=== PATIENT | female | born 1975 | race African-American/Black ===

== ENCOUNTER 2016-06-09 05:45 | Inpatient (IN) | payer MEDICAID ==
[~2016-06-09] VITALS: Ht 177.8 cm; Wt 83.0 kg
[2016-06-09] VITALS (31 sets, daily range): BP systolic 105–125; BP diastolic 59–78; PULSE 80–106; RESP 18; TEMP 97.7–97.9
[~2016-06-09 05:45] MED LIST: CETI10 PO
[2016-06-09] MEDS ORDERED: ZYRT10CA PO (06:24)
[2016-06-09] MEDS ORDERED: FLUT50SP EACH NARE (06:24)
[2016-06-09] MEDS ORDERED: CALNTAB (06:24)
[2016-06-09] MEDS ORDERED: LACTATED RINGER'S 1000 ML BOLUS IV PRN (07:30)
[2016-06-09] MEDS ORDERED: NS 1000 ML IV PRN (07:30)
[2016-06-09] MEDS ORDERED: MINERAL OIL 10 ML VIAL TOP PRN (07:30)
[2016-06-09] MEDS ORDERED: ONDANSETRON HCL 4 MG/2 ML VIAL IV PRN (07:30)
[2016-06-09] MEDS ORDERED: NS 500 ML BOLUS IV PRN (07:30)
[2016-06-09] MEDS ORDERED: LIDOCAINE HCL 1% 50 ML VIAL I-DERMAL PRN ×2 (07:30→07:45)
[2016-06-09] MEDS ORDERED: LIDOCAINE HCL 1% 50 ML VIAL INFIL PRN ×2 (07:30→07:45)
[2016-06-09] MEDS ORDERED: CITRIC ACID-SODIUM CITRATE LIQ 30 ML UDC PO SCH ×2 (07:30→07:45)
[2016-06-09] MEDS ORDERED: LACTATED RINGER'S 1000 ML INJ 1,000 ML IV PRN (07:32)
--- NOTE | 2016-06-09 07:44 | HHI.HP ---
HPI Chief Complaint 39 week IUP ; for TOLAC marginal bishops score resides at [facility] opioid addiction in remission Date Seen: Jun 09, 2016 Time Seen: 07:37 Travel History International Travel<30 Days: No Contact w/Intl Traveler<30Days: No Known Affected Area: No History of Present Illness HPI 40 yo sbf at 39 weeks EGA admitted for low dose pitocin and TOLAC Prior section 17 years ago with known LTSC scar. No HTN, GDM or PTL Currently has no UCs, leaking, bleeding. GFM. Cervix marginally favorable. Resides at [facility] and logistics at times difficult. Transferred mid from long term and in [facility] Diversion program. She is Hep C+ GBS+ no other serology positive. 45 pound weight gain. Para: 1 : 3 Allergies-Medications (Allergen,Severity, Reaction): Coded Allergies: No Known Allergies (Verified , 10/03/14) Home Meds Reported Medications Cetirizine (Zyrtec Allergy)10 Mg Cap10 Mg PO DAILY Ref 0 06/09/16 Fluticasone Nasal [place] 50 Mcg/Act Naspr50 Mcg EACH NARE BID #1 BOTTLE Ref 0 50 mcg/spray 06/09/16 Vitamin (Calna)1 Tab Tab 06/09/16 Discontinued Scripts Cetirizine 10 Mg Tab10 Mg PO Q12HR #30 TAB Prov:Deepa Burrell MD 01/26/16 Physical Exam Narrative GENERAL: Well-nourished, well-developed patient. SKIN: Warm and dry. HEAD: Normocephalic and atraumatic. EYES: No scleral icterus. No injection or drainage. ENT: No nasal drainage noted. Mucous membranes pink. Airway patent. NECK: Supple, trachea midline. No JVD. CARDIOVASCULAR: Regular rate and rhythm without murmurs, gallops, or rubs. RESPIRATORY: Breath sounds equal bilaterally. No accessory muscle use. BREASTS: Bilateral exam showed no masses , no retractions, no nipple discharge. ABDOMEN/GI: Abdomen soft, non-tender, bowel sounds present, no rebound, no guarding term fundus cephalic EFW 7 pelvis clinically adequate strip category 1 cervix soft/50/anterior/finger tip EXTREMITIES: No cyanosis or edema. BACK: Nontender without obvious deformity. No CVA tenderness. NEUROLOGICAL: Awake and alert. Motor and sensory grossly within normal limits. Five out of 5 muscle strength in all muscle groups. Normal speech. Data Data Orders Lactated Ringer's 1000 Ml Inj (Lr 1000 M (06/09/16 08:00) Lactated Ringer's 1000 Ml Inj (Lr 1000 M (06/09/16 07:30) Sodium Chlorid 0.9% 500 Ml Inj (Ns 500 M (06/09/16 07:30) Sodium Chlor 0.9% 1000 Ml Inj (Ns 1000 M (06/09/16 07:30) Lidocaine 1% Inj (50 Ml) (Xylocaine 1% I (06/09/16 07:30) Citric Acid-Sodium Citrate Liq (Bicitra (06/09/16 07:30) Ondansetron Inj (Zofran Inj) (06/09/16 07:30) Fentanyl Inj (Fentanyl Inj) (06/09/16 07:30) Fentanyl Inj (Fentanyl Inj) (06/09/16 07:30) Penicillin G Potassium Inj (Pfizerpen-G (06/09/16 08:00) Penicillin G Potassium Inj (Pfizerpen-G (06/09/16 12:00) Oxytocin 30 Units-500ml Premix (Pitocin (06/09/16 08:00) Lidocaine 1% Inj (50 Ml) (Xylocaine 1% I (06/09/16 07:30) Light Mineral Oil (Muri-Lube Oil) (06/09/16 07:30) Admit To Inpatient (06/09/16 ) Code Status (06/09/16 07:32) Vital Signs (Adult) .Per protocol (06/09/16 07:32) Activity Oob Ad Eliana (06/09/16 07:32) ^ Amnioinfusion (06/09/16 07:32) Urinary Catheter Management .ONCE (06/09/16 07:32) Lactated Ringer's 1000 Ml Inj (Lr 1000 M (06/09/16 07:32) Lactated Ringer's 1000 Ml Inj (Lr 1000 M (06/09/16 07:32) Sodium Chlorid 0.9% 500 Ml Inj (Ns 500 M (06/09/16 07:45) Sodium Chlor 0.9% 1000 Ml Inj (Ns 1000 M (06/09/16 07:52) Lidocaine 1% Inj (50 Ml) (Xylocaine 1% I (06/09/16 07:45) Citric Acid-Sodium Citrate Liq (Bicitra (06/09/16 07:45) Fentanyl Inj (Fentanyl Inj) (06/09/16 07:45) Fentanyl Inj (Fentanyl Inj) (06/09/16 07:45) Penicillin G Potassium Inj (Pfizerpen-G (06/09/16 07:45) Penicillin G Potassium Inj (Pfizerpen-G (06/09/16 11:45) Complete Blood Count With Diff (06/09/16 07:32) Hold Clot (06/09/16 07:32) Abo/Rh Blood Type (06/09/16 07:32) Urinalysis - C+S If Indicated (06/09/16 07:32) Resp Oxygen Non Rebreathe Mask (06/09/16 ) ^ Epidural / Intrathecal Infus (06/09/16 07:32) Oxytocin 30 Units-500ml Premix (Pitocin (06/09/16 07:45) Lidocaine 1% Inj (50 Ml) (Xylocaine 1% I (06/09/16 07:45) Light Mineral Oil (Muri-Lube Oil) (06/09/16 07:45) ^ Non Stress Test (06/09/16 07:32) Response To Medication .Post New Med Administration, Reaction (06/09/16 07:32) ^ Discontinue Medication (06/09/16 07:32) Oxytocin Drip (1-1-30) (06/09/16 07:45) Inpatient Certification (06/09/16 ) Specimen To Be Collected PRN (06/09/16 07:32) Diet Regular Basic (06/09/16 Breakfast) Hepatitis C Rna Genotype (06/09/16 07:32) Hepatitis C Rna Quantitative (06/09/16 07:32) Assessment/Plan Problem List: (1) Abdominal cramping affecting , antepartum (2) 20 weeks gestation of Assessment and Plan candidate for TOLAC here for low dose pitocin epidural as desires anticipate Deepa Giles MD Jun 09, 2016 07:44
[2016-06-09] MEDS ORDERED: SODIUM CHLORID 0.9% 500 ML INJ 500 ML IV PRN (07:45)
[2016-06-09] MEDS ORDERED: MINERAL OIL 10 ML VIAL TOPICAL PRN (07:45)
[2016-06-09 07:51] LABS: AUTOMATED NEUTROPHIL # 8.6 TH/MM3 (1.8-7.7); BASOPHIL % 0.2 % (0.0-2.0); EOSINOPHIL # 0.3 TH/MM3 (0-0.4); EOSINOPHIL % 1.9 % (0.0-4.0); HEMATOCRIT 30.6 % (35.0-46.0); HEMO FLAGS DIFF FINAL; LYMPH % 29.1 % (9.0-44.0); LYMPHOCYTE # 4.1 TH/MM3 (1.0-4.8); MEAN CELL VOLUME 85.1 FL (80.0-100.0); MEAN CORPUSCULAR HEMOGLOBIN 28.5 PG (27.0-34.0); MEAN CORPUSCULAR HGB CONC 33.5 % (32.0-36.0); MONO % 7.8 % (0.0-8.0); PLATELET COUNT 317 TH/MM3 (150-450); RED CELL DISTRIBUTION WIDTH 14.9 % (11.6-17.2); WHITE BLOOD COUNT 14.2 TH/MM3 (4.0-11.0)
[2016-06-09] MEDS ORDERED: SODIUM CHLOR 0.9% 1000 ML INJ 1,000 ML IV PRN (07:52)
[2016-06-09] MEDS ORDERED: PENICILLIN G POTASSIUM INJ 5,000,000 UNITS in SODIUM CHLORIDE 0.9% INJ 100 ML IV ONE (08:00)
[2016-06-09] MEDS ORDERED: LACTATED RINGER'S 1000 ML IV SCH (08:00)
[2016-06-09] MEDS ORDERED: OXYTOCIN 30 UNITS-500ML PREMIX 500 ML IV ONE (08:00)
[2016-06-09] MEDS ORDERED: OXYTOCIN 30 UNITS 500ML PREMIX IV ONE (08:00)
[2016-06-09] MEDS ORDERED: PENICILLIN G POT 5,000,000 UNITS/NS 100 ML (Mini-Bag Plus) IV ONE ×2 (08:00)
[2016-06-09 08:01] LABS: BLOOD, URINE NEG (NEG); GLUCOSE,URINE NEG (NEG); KETONE, URINE NEG (NEG); MUCUS URINE FEW /lpf (OCC); NITRITE,URINE NEG (NEG); SQUAMOUS EPITHELIAL CELL URINE 1 /hpf (0-5); URINE COLOR YELLOW (YELLW/STRAW)
[2016-06-09 08:02] LABS: COMMENT (UR) CULT NOT INDICATED; CULTURE IF INDICATED CULT NOT INDICATED
[2016-06-09] MEDS: LACTATED RINGER'S 1000 ML INJ 1,000 ML IV SCH ×2 (08:32→21:50)
[2016-06-09] MEDS: OXYTOCIN 30 UNITS-500ML PREMIX 500 ML IV SCH (08:56)
[2016-06-09] MEDS: PENICILLIN G POTASSIUM INJ 2,500,000 UNITS in SODIUM CHLORIDE 0.9% INJ 100 ML IV SCH ×3 (12:00→20:00)
[2016-06-09] MEDS ORDERED: PENICILLIN G POT 2,500,000 UNITS/NS 100 ML IV SCH ×2 (12:00)
--- NOTE | 2016-06-09 13:06 | PD.LABORPN ---
Subjective Subjective having some mild ucs Objective Vital Signs Vital Signs Date Time Temp Pulse Resp B/P Pulse Ox O2 Delivery O2 Flow Rate FiO2 06/09/16 12:33 18 06/09/16 12:32 92 113/68 06/09/16 11:53 96 116/65 06/09/16 11:22 97.8 99 18 108/68 06/09/16 10:44 97 114/65 06/09/16 10:15 18 06/09/16 10:15 101 118/67 06/09/16 09:41 18 06/09/16 09:35 106 119/59 06/09/16 08:53 92 18 105/68 06/09/16 08:04 89 114/70 06/09/16 08:03 18 Objective 1 cm 50% stripped strip category one Assessment/Plan Problem List: (1) Abdominal cramping affecting , antepartum (2) 20 weeks gestation of Assessment and Plan will increase pitocin section was 17 years ago. may be serial induction Deepa Burrell MD Jun 09, 2016 13:06
[2016-06-09] MEDS: diphenhydrAMINE HCL 50 MG CAP PO PRN (15:57)
[2016-06-09] MEDS: ZOLPIDEM TARTRATE 5 MG TAB PO PRN (23:05)
[2016-06-10] VITALS (60 sets, daily range): BP systolic 92–125; BP diastolic 48–88; PULSE 87–107; RESP 16–18; TEMP 97.6–98.4
[2016-06-10] MEDS: PENICILLIN G POTASSIUM INJ 2,500,000 UNITS in SODIUM CHLORIDE 0.9% INJ 100 ML IV SCH ×4 (04:00→17:15)
--- NOTE | 2016-06-10 06:23 | PD.LABORPN ---
Subjective Subjective Resting comfortably with mild UCs on 13 mu/min pit no epidural yet Objective Vital Signs Vital Signs Date Time Temp Pulse Resp B/P Pulse Ox O2 Delivery O2 Flow Rate FiO2 06/10/16 05:34 98.0 18 06/10/16 05:34 90 112/67 06/10/16 04:11 90 101/58 06/10/16 03:30 95 93/50 06/10/16 03:00 90 92/50 06/10/16 02:30 91 101/48 06/10/16 02:02 89 102/49 06/10/16 02:00 90 06/10/16 01:30 87 103/57 06/10/16 01:15 18 06/10/16 01:00 91 109/55 06/10/16 00:31 89 111/55 06/10/16 00:00 87 104/55 06/09/16 23:45 80 121/69 06/09/16 23:07 97.7 18 06/09/16 23:01 86 117/70 06/09/16 22:45 18 06/09/16 22:41 91 125/78 Objective anterior/soft/long/1 cm EFW 7 pelvis clinically adequate strip category 1 Assessment/Plan Problem List: (1) Abdominal cramping affecting , antepartum (2) 20 weeks gestation of Assessment and Plan slow progress reassuring and maternal status cannot use prostaglandins turn pitocin off shower, breakfast resume pitocin at 1 mu/min Deepa Burrell MD Jun 10, 2016 06:23
[2016-06-10] MEDS: diphenhydrAMINE HCL 50 MG CAP PO PRN (07:23)
[2016-06-10] MEDS: OXYTOCIN 30 UNITS-500ML PREMIX 500 ML IV SCH (10:06)
--- NOTE | 2016-06-10 11:20 | PD.LABORPN ---
Subjective Subjective No change yet strip reassuring large winters with Q tip stylette placed through cervix and filled with 45 cc saline and taped to leg keep pitocin at 2 mu/min will see if assists in effacement Objective Vital Signs Vital Signs Date Time Temp Pulse Resp B/P Pulse Ox O2 Delivery O2 Flow Rate FiO2 06/10/16 10:35 16 06/10/16 10:00 107 16 106/68 06/10/16 09:45 16 06/10/16 08:45 16 06/10/16 08:15 18 06/10/16 07:45 16 06/10/16 07:08 105 92/55 06/10/16 07:07 97.9 16 06/10/16 05:34 98.0 18 06/10/16 05:34 90 112/67 06/10/16 04:11 90 101/58 06/10/16 03:30 95 93/50 Objective Pelvic Exam: Cervix: [-] Dilatation: [-] Effacement: [-] Station: [-] Presentation: [-] Membranes: [intact or ruptured] Uterine Contractions: [-] FHT's: Category: [-] Baseline: [-] Reactive: [-] Variability: [-] Decels: [-] Assessment/Plan Problem List: (1) Abdominal cramping affecting , antepartum (2) 20 weeks gestation of Deepa Burrell MD Jun 10, 2016 11:20
[2016-06-10] MEDS: LACTATED RINGER'S 1000 ML INJ 1,000 ML IV SCH (13:29)
[2016-06-10] MEDS: ZOLPIDEM TARTRATE 5 MG TAB PO PRN (22:38)
[2016-06-11] VITALS (31 sets, daily range): BP systolic 88–128; BP diastolic 48–86; PULSE 75–101; RESP 16–18; TEMP 97.8–98.2; O2SAT 97–100
[2016-06-11] MEDS: PENICILLIN G POTASSIUM INJ 2,500,000 UNITS in SODIUM CHLORIDE 0.9% INJ 100 ML IV SCH ×5 (00:32→16:08)
[2016-06-11] MEDS: LACTATED RINGER'S 1000 ML INJ 1,000 ML IV SCH ×2 (04:42→08:19)
--- NOTE | 2016-06-11 07:41 | PD.LABORPN ---
Subjective Subjective Beginning to perceive contractions no pain medicine required yet winters fell out of cervix at 1 am beginning to perceive contractions strip reactive winters fell out of cervix at 1 am GFM no leaking or bleeding Objective Vital Signs Vital Signs Date Time Temp Pulse Resp B/P Pulse Ox O2 Delivery O2 Flow Rate FiO2 06/11/16 05:50 85 107/58 06/11/16 05:49 16 06/11/16 05:14 16 06/11/16 05:13 93 104/66 06/11/16 04:40 92 06/11/16 04:40 95 103/65 06/11/16 04:15 98.1 16 06/11/16 04:00 94 104/62 06/11/16 03:30 95 104/54 06/11/16 03:00 90 100/51 06/11/16 02:30 95 97/49 06/11/16 02:00 91 94/53 06/11/16 01:55 98.0 16 06/11/16 01:30 95 98/48 06/11/16 01:01 16 06/11/16 01:00 93 103/55 06/11/16 00:30 91 98/56 06/11/16 00:05 94 88/66 06/10/16 23:56 97.6 16 06/10/16 23:56 95 96/48 Objective 2+/50/-2 soft and anterior arom clear pelvis clinically adequate efw 7 pounds strip category 1 Assessment/Plan Problem List: (1) Abdominal cramping affecting , antepartum (2) 20 weeks gestation of Assessment and Plan resume pen G for GBS prophylaxis increase pitocin epidural as needed continuous monitoring anticipate all reviewed with Deepa Buckley MD Jun 11, 2016 07:41
[2016-06-11 09:51] LABS: HCV RNA PCR IU/ML 596000 IU/mL (()); HCV RNA PCR LOGIU/ML 5.78 (())
--- NOTE | 2016-06-11 16:57 | PD.LABORPN ---
Subjective Subjective after AROM this am, Thais has remained comfortble with mild contractions. On 10 mu/min pitocin/ PCN for GBS . Checks at noon and 4:30 show now dilation, thinning or descent beyond what was created by the winters bulb. Strip category one Objective Vital Signs Vital Signs Date Time Temp Pulse Resp B/P Pulse Ox O2 Delivery O2 Flow Rate FiO2 06/11/16 13:03 91 128/76 06/11/16 12:35 97.9 06/11/16 12:34 93 18 116/70 06/11/16 09:53 98.2 06/11/16 09:31 93 109/55 06/11/16 09:30 98.2 18 Assessment/Plan Problem List: (1) Abdominal cramping affecting , antepartum (2) 20 weeks gestation of Assessment and Plan Healthy fetus and mother with a 2 1/2 day TOLAC that has not produced enough cervical change to warrant continued effort. Discussed with Thais and FOB and we will proceed with repeat section. Risks, benefits, expectations reviewed. Deepa Burrell MD Jun 11, 2016 16:57
[2016-06-11] MEDS ORDERED: OXYTOCIN 10 UNIT/ML AMP ONE (17:15)
--- NOTE | 2016-06-11 18:16 | PD.OB.DELI ---
Procedure Note Section Procedure Pre Op Diagnosis term, TOLAC,. failure of dilation and descent Post Op Diagnosis: Post Op Diagnosis same, delivered Performed by Deepa Burrell Procedure: Repeat Low Transverse Sec Indication for delivery: Other (lack of dilation and descent) Informed consent obtained: For anesthesia, For procedure Confirmed correct: Patient, Procedure, Site, Time-out taken Anesthesia: Spinal, Other (with post procedure TAP) Medication prior to procedure: As documented in eMAR Monitoring during procedure: Blood pressure monitoring Urinary catheter: Inserted using sterile technique, To dependent drainage Sterile preparation: Duraprep, In usual fashion, With 2% chlorexidine ( Hibiclens) Position: Supine with wedge to right side Operative Features Skin Incision: Pfannenstiel Uterine Incision: Low transverse w/knife / blunt ext Membranes Ruptured: Artificially Presentation: Occiput anterior Delivery of infant: Assisted : Male One Minute : 9 Five Minute : 9 Weight: 7 5 Status of infant: Viable, Cord blood Placenta delivered: Intact Medications: Oxytocin Estimated blood loss: 500 Procedure tolerated: Well Maternal Condition: Stable Condition: Stable (45 second delay for cord clamping) Deepa Burrell MD Jun 11, 2016 18:16
[2016-06-11] MEDS ORDERED: KETOROLAC TROMETHAMINE 60 MG/2 ML (IM) VIAL IM PRN (18:30)
[2016-06-11] MEDS ORDERED: SODIUM CHLORIDE 0.9% FLUSH 10 ML FLUSH IV FLUSH PRN (18:30)
[2016-06-11] MEDS ORDERED: SIMETHICONE 80 MG CHEWABLE TAB PO PRN (18:30)
[2016-06-11] MEDS ORDERED: ACETAMINOPHEN 1000 MG/100 ML VIAL IV ONE ×2 (18:30→18:54)
[2016-06-11] MEDS ORDERED: OXYTOCIN 30 UNITS-500ML PREMIX 500 ML IV ONE (18:30)
[2016-06-11] MEDS ORDERED: ONDANSETRON HCL 4 MG/2 ML VIAL IV PUSH PRN (18:30)
[2016-06-11] MEDS ORDERED: oxyCODONE/ACETAMINOPHEN 5 MG/325 MG TAB PO PRN ×2 (18:30)
[2016-06-11] MEDS ORDERED: MORPHINE SULFATE PF 5 MG/10 ML VIAL ONE (18:31)
[2016-06-11] MEDS ORDERED: DEXAMETHASONE SOD PHOS 4 MG/ML VIAL IV ONE (18:49)
[2016-06-11] MEDS ORDERED: LACTATED RINGER'S 1000 ML INJ 1,000 ML IV ONE (18:49)
[2016-06-11] MEDS ORDERED: OXYTOCIN 30 UNITS-500ML PREMIX 500 ML ONE (18:54)
[2016-06-11 19:53] LABS: HEPATITIS C RNA GENOTYPE 1a (())
[2016-06-11] MEDS ORDERED: EPIDURAL-DIPHENHYDRAMINE HCL 50 MG CAP PO PRN (20:00)
[2016-06-11] MEDS ORDERED: EPIDURAL-DIPHENHYDRAMINE HCL 50 MG/ML VIAL IV PUSH PRN (20:00)
[2016-06-11] MEDS ORDERED: EPIDURAL-NALOXONE HCL 0.4 MG/ML AMP IV PRN (20:00)
[2016-06-11] MEDS ORDERED: EPIDURAL-DO NOT ADMINISTER ANTICOAGULANTS XX PRN (20:00)
[2016-06-11] MEDS ORDERED: EPIDURAL-NO SYSTEMIC NARCOTICS XX PRN (20:00)
[2016-06-11] MEDS ORDERED: ZOLPIDEM TARTRATE 5 MG TAB PO PRN (21:00)
[2016-06-11] MEDS ORDERED: SODIUM CHLORIDE 0.9% FLUSH 10 ML FLUSH IV FLUSH SCH (21:00)
[2016-06-11] MEDS: diphenhydrAMINE HCL 50 MG CAP PO PRN (23:04)
[2016-06-11] MEDS ORDERED: LACTATED RINGER'S 1000 ML INJ 1,000 ML IV SCH (23:16)
[2016-06-12 01:30] VITALS: BP 114/67; PULSE 77; RESP 18; TEMP 98.2
[2016-06-12] MEDS ORDERED: OXYTOCIN 30 UNITS-500ML PREMIX 500 ML IV PRN (04:30)
[2016-06-12 06:12] LABS: AUTOMATED NEUTROPHIL # 16.5 TH/MM3 (1.8-7.7); BASOPHIL # 0.1 TH/MM3 (0-0.2); BASOPHIL % 0.3 % (0.0-2.0); HEMATOCRIT 27.6 % (35.0-46.0); HEMO FLAGS DIFF FINAL; LYMPH % 16.8 % (9.0-44.0); LYMPHOCYTE # 3.7 TH/MM3 (1.0-4.8); MEAN CELL VOLUME 84.8 FL (80.0-100.0); MEAN CORPUSCULAR HEMOGLOBIN 28.3 PG (27.0-34.0); MEAN CORPUSCULAR HGB CONC 33.4 % (32.0-36.0); MONO % 7.6 % (0.0-8.0); NEUT % 75.3 % (16.0-70.0); PLATELET COUNT 283 TH/MM3 (150-450); RED BLOOD COUNT 3.25 MIL/MM3 (4.00-5.30); RED CELL DISTRIBUTION WIDTH 15.7 % (11.6-17.2); WHITE BLOOD COUNT 21.9 TH/MM3 (4.0-11.0)
[2016-06-12 07:45] VITALS: BP 99/59; PULSE 76; RESP 18; TEMP 98.1
[2016-06-12] MEDS: diphenhydrAMINE HCL 50 MG CAP PO PRN (08:04)
[2016-06-12] MEDS: DOCUSATE SODIUM 50 MG/SENNA 8.6 MG TAB PO PRN (15:05)
[2016-06-12] MEDS ORDERED: DIPHTH/TETANUS/ACEL PERTUSSIS (BOOSTER) 0.5 ML VIAL/PFS IM ONE (16:00)
[2016-06-12] MEDS ORDERED: MEASLES, MUMPS, RUBELLA VACCINE 0.5 ML VIAL SQ ONE (16:00)
[2016-06-12 19:35] VITALS: BP 130/70; PULSE 94; RESP 18; TEMP 98.1
[2016-06-12] MEDS ORDERED: INFLUENZA VIRUS VACCINE (QUADRIVALENT) 0.5 ML SYR IM ONE (22:00)
[2016-06-12] MEDS ORDERED: ACETAMINOPHEN 325 MG TAB PO PRN (22:30)
[2016-06-12] MEDS ORDERED: IBUPROFEN 600 MG TAB PO PRN (22:30)
[2016-06-12] MEDS: KETOROLAC TROMETHAMINE 30 MG/ML (IVP) VIAL IV PUSH PRN (22:34)
--- NOTE | 2016-06-13 09:05 | HHI.OB ---
Subjective Post Operative Day: 2 Remarks Doing well no pain issues nursing well Objective Vitals/I&O Vital Signs Date Time Temp Pulse Resp B/P Pulse Ox O2 Delivery O2 Flow Rate FiO2 06/12/16 19:35 98.1 94 18 06/12/16 19:35 130/70 Result Diagram: 06/12/16 0504 Objective Remarks GENERAL: Well-nourished, well-developed patient. CARDIOVASCULAR: Regular rate and rhythm without murmurs, gallops, or rubs. RESPIRATORY: Breath sounds equal bilaterally. No accessory muscle use. ABDOMEN/GI: Abdomen soft, non-tender, bowel sounds present. Incision: Clean, dry and intact. Fundus: Firm, non-tender at umbilicus. GENITOURINARY: Light to moderate bleeding. EXTREMITIES: No cyanosis or edema, non-tender, without signs of DVT. Medications and IVs Current Medications Medications (Trade) Dose Ordered Sig/Catina Route Start Time Stop Time Status Last Admin Fentanyl Citrate 50 mcg 50 mcg Q1H PRN IV PUSH 06/09/16 07:45 (Pfizerpen-G Inj/ NS Inj) 100 ml @ 200 mls/hr Q4H IV 06/09/16 12:00 06/11/16 16:08 Mineral Oil 10 ml 10 ml UNSCH PRN TOPICAL 06/09/16 07:45 (Pitocin 30 Units-NS 500 ml Premix) 500 ml @ 0 mls/hr TITRATE IV 06/09/16 07:45 06/10/16 10:06 (Benadryl) 50 mg Q4H PRN PO 06/09/16 16:00 06/12/16 08:04 (NS Flush) 2 ml BID IV FLUSH 06/11/16 21:00 (NS Flush) 2 ml UNSCH PRN IV FLUSH 06/11/16 18:30 (Mylicon Chew) 80 mg QID PRN PO 06/11/16 18:30 (Mary-Colace) 2 tab Q12H PRN PO 06/11/16 18:30 06/12/16 15:05 (Ambien) 5 mg HS PRN PO 06/11/16 21:00 (Zofran Inj) 4 mg Q6H PRN IV PUSH 06/11/16 18:30 (Motrin) 600 mg Q6H PRN PO 06/12/16 22:30 (Tylenol) 650 mg Q4H PRN PO 06/12/16 22:30 (Toradol Inj) 30 mg Q6H PRN IV PUSH 06/12/16 22:30 06/17/16 22:29 06/12/16 22:34 Assessment/Plan Problem List: (1) Abdominal cramping affecting , antepartum (2) 20 weeks gestation of Assessment and Plan doing well POD 2 anemic no other issues of pain or concerns Deepa Burrell MD Jun 13, 2016 09:05
[2016-06-13] MEDS: diphenhydrAMINE HCL 50 MG CAP PO PRN (11:18)
[2016-06-13] MEDS: KETOROLAC TROMETHAMINE 30 MG/ML (IVP) VIAL IV PUSH PRN ×3 (11:26→23:43)
--- NOTE | 2016-06-13 15:40 | MP ---
cc: DEEPA DELA CRUZ M.D. DATE OF SURGERY: 06/11/2016. PREOPERATIVE DIAGNOSIS: Term , trial of labor after section, failure of descent. POSTOPERATIVE DIAGNOSIS: Term , trial of labor after section, failure of descent, delivered. OPERATION: Repeat low transverse segment section. SURGEON: Deepa Dela Cruz MD. MOWER OPERATOR: Hospital staff. ANESTHESIA: Spinal with Duramorph and she will receive a tap. FINDINGS: A living male weighing 7 pounds, 5 ounces with Apgars 9 at one and 9 at five was delivered from [facility] with clear fluid and no nuchal cord. He had an anterior low-lying placenta but this did not interfere with the prior section scar or the current one. ESTIMATED BLOOD LOSS: Average. COUNTS: Sponge, instrument and needle counts were correct. DISPOSITION: The mom and baby tolerated the procedure well. DESCRIPTION OF THE PROCEDURE IN DETAIL: The patient was taken to the operating room after 2-1/2 days of attempts at cervical ripening and induction. She was given a spinal with Duramorph and then placed in dorsal supine position with weight off the vena cava. The Hughes catheter was placed. She had sequential stockings on. She had received a gram of Ancef IV. She was prepped and draped in the usual sterile fashion. After assuring adequate analgesia, a time-out was performed with all in attendance and then a Pfannenstiel's incision was made through her prior incision and taken down through the rectus fascia. The scarred rectus fascia was incised in an elliptical fashion and taken off the rectus muscle. The rectus muscle sharply dissect in the midline care to avoid underlying structures and then the incision was extended bluntly. The anterior lower uterine segment showed the presence of the placenta was some concern about possible accreta that area if that scar was avoided and we went lower and going lower we were able to avoid everything but the most lower lip of the placenta and deliver the infant with Apgars of 9 at one and 9 at five with minimal bleeding. The cord was clamped after 45 seconds and cut and he was handed to the neonatology team in attending. Cord blood was obtained and then the placenta was delivered manually intact. The uterus was carefully evaluated and rubbed rigorously, clamped down appropriately and I did not feel there was any significant defect at the old scar. It was closed with a running interlocking suture of chromic and then an imbricating layer above that. The uterus was replaced in the abdomen watched carefully for hemostasis. Irrigation was performed and then the rectus muscle was reapproximated with a Vicryl running. The fascia was closed with #1 Vicryl. The subcutaneous layer was closed with 3-0 plain and the skin was closed with 4-0 Vicryl on a Ag needle. The estimated blood loss was average. Sponge, needle and instrument counts were correct. She tolerated the procedure well and she went to the recovery room stable. MD HARIS Peterson/PATRICIO /6:14 PM /3:23 PM
[2016-06-13 20:30] VITALS: BP 123/70; PULSE 97; RESP 18; TEMP 98.5
[2016-06-13] MEDS: POLYSACCHARIDE IRON COMPLEX 150 MG CAP PO SCH (21:33)
[2016-06-13] MEDS: DOCUSATE SODIUM 50 MG/SENNA 8.6 MG TAB PO PRN (21:33)
[2016-06-14] MEDS: KETOROLAC TROMETHAMINE 30 MG/ML (IVP) VIAL IV PUSH PRN ×2 (05:40→11:57)
[2016-06-14 08:00] VITALS: BP 118/70; PULSE 84; RESP 16; TEMP 98.2
[2016-06-14] MEDS: POLYSACCHARIDE IRON COMPLEX 150 MG CAP PO SCH (08:59)
[2016-06-14] MEDS ORDERED: POLYETHYLENE GLYCOL 17 GM PKG PO SCH (09:00)
--- NOTE | 2016-06-14 10:42 | HHI.OB ---
Subjective Post Operative Day: 3 Remarks doing well no issues ready to return to warm Objective Vitals/I&O Vital Signs Date Time Temp Pulse Resp B/P Pulse Ox O2 Delivery O2 Flow Rate FiO2 06/14/16 08:00 98.2 84 16 118/70 06/13/16 20:30 97 18 123/70 06/13/16 20:30 98.5 Result Diagram: 06/12/16 0504 Objective Remarks GENERAL: Well-nourished, well-developed patient. CARDIOVASCULAR: Regular rate and rhythm without murmurs, gallops, or rubs. RESPIRATORY: Breath sounds equal bilaterally. No accessory muscle use. ABDOMEN/GI: Abdomen soft, non-tender, bowel sounds present. Incision: Clean, dry and intact. Fundus: Firm, non-tender at umbilicus. GENITOURINARY: Light to moderate bleeding. EXTREMITIES: No cyanosis or edema, non-tender, without signs of DVT. Medications and IVs Current Medications Medications (Trade) Dose Ordered Sig/Catina Route Start Time Stop Time Status Last Admin Fentanyl Citrate 50 mcg 50 mcg Q1H PRN IV PUSH 06/09/16 07:45 (Pfizerpen-G Inj/ NS Inj) 100 ml @ 200 mls/hr Q4H IV 06/09/16 12:00 06/11/16 16:08 Mineral Oil 10 ml 10 ml UNSCH PRN TOPICAL 06/09/16 07:45 (Pitocin 30 Units-NS 500 ml Premix) 500 ml @ 0 mls/hr TITRATE IV 06/09/16 07:45 06/10/16 10:06 (Benadryl) 50 mg Q4H PRN PO 06/09/16 16:00 06/13/16 11:18 (NS Flush) 2 ml BID IV FLUSH 06/11/16 21:00 06/11/16 23:43 (NS Flush) 2 ml UNSCH PRN IV FLUSH 06/11/16 18:30 06/14/16 05:40 (Mylicon Chew) 80 mg QID PRN PO 06/11/16 18:30 (Mary-Colace) 2 tab Q12H PRN PO 06/11/16 18:30 06/13/16 21:33 (Ambien) 5 mg HS PRN PO 06/11/16 21:00 (Zofran Inj) 4 mg Q6H PRN IV PUSH 06/11/16 18:30 (Motrin) 600 mg Q6H PRN PO 06/12/16 22:30 (Tylenol) 650 mg Q4H PRN PO 06/12/16 22:30 (Toradol Inj) 30 mg Q6H PRN IV PUSH 06/12/16 22:30 06/17/16 22:29 06/14/16 05:40 (Nu-Iron) 150 mg Q12HR PO 06/13/16 21:00 06/14/16 08:59 (Miralax) 17 gm DAILY PO 06/14/16 09:00 06/14/16 08:59 Assessment/Plan Problem List: (1) Abdominal cramping affecting , antepartum (2) 20 weeks gestation of Assessment and Plan doing well POD 3 anemic no other issues of pain or concerns Deepa Burrell MD Jun 14, 2016 10:42
[2016-06-14] MEDS ORDERED: NU-IRON PO (10:44)
[2016-06-14] MEDS ORDERED: IBUP-232 PO (10:44)
--- NOTE | 2016-06-14 10:44 | HHI.DCPOC ---
Discharge Care Plan Report Symptoms to Your Doctor -Temperate above 100.5 degrees -Redness, of incision or excessive or foul smelling drainage -Unusual pain or calf pain -Increased vaginal bleeding -Painful or difficulty urinating -Feelings of extreme sadness or anxiety after 2 weeks Goals to Promote Your Health * To prevent worsening of your condition and complications * To maintain your health at the optimal level Directions to Meet Your Goals Take your medications as prescribed Follow your dietary instruction Follow activity as directed Ensure plenty of rest for recovery Drink fluids for hydration Keep your appointments as scheduled Take your immunizations and boosters as scheduled If your symptoms worsen call your PCP, if no PCP go to Urgent Care Center or Emergency Room Smoking is Dangerous to Your Health. Avoid second hand smoke Call the 24-hour crisis hotline for domestic abuse at Deepa Burrell MD Jun 14, 2016 10:44
== END 2016-06-14 13:07 | disposition home or self-care (01) | DRG 765 ==
LOC: H2EB 05:45 → H1EA 06-11 19:48
PROVIDERS: ADMIT Obstetrics & Gynecology; ATTEND Obstetrics & Gynecology
PROC: 10D00Z1 Extraction of Products of Conception, Low, Open Approach (ICD-10-PCS; principal; 2016-06-11)
PROC: 10907ZC Drainage of Amniotic Fluid, Therapeutic from Products of Conception, Via Natural or Artificial Opening (ICD-10-PCS; 2016-06-11)
PROC: 3E0T3CZ (ICD-10-PCS; 2016-06-11)
DX: O99.324 Drug use complicating childbirth (principal); O44.43 Low lying placenta NOS or without hemorrhage, third trimester; B19.20 Unspecified viral hepatitis C without hepatic coma; F11.21 Opioid dependence, in remission; O66.41 Failed attempted vaginal birth after previous cesarean delivery; O34.211 Maternal care for low transverse scar from previous cesarean delivery; O99.824 Streptococcus B carrier state complicating childbirth; Z3A.39 39 weeks gestation of pregnancy; O09.523 Supervision of elderly multigravida, third trimester; Z37.0 Single live birth; Z23 Encounter for immunization
CPT/HCPCS: 59025; 81001; 85025; 86900; 86901; 87522; 87902; 90686; 90715; J0131; J1100; J1885; J2274; J2540; J2590; J7120; Q0163; Q2038

== ENCOUNTER 2016-11-22 13:50 | Emergency (ER) | payer MEDICAID ==
[~2016-11-22] VITALS: Ht 175.3 cm; Wt 78.0 kg
[~2016-11-22 13:50] MED LIST changes: +CALNTAB; -CETI10 PO; +FLUT50SP EACH NARE; +IBUP-232 PO; +NU-IRON PO; +ZYRT10CA PO
[2016-11-22 14:05] VITALS: BP 106/65; PULSE 81; PULSE 84; RESP 18; TEMP 98.5; O2SAT 99
--- NOTE | 2016-11-22 14:09 | PD ---
HPI Chief Complaint: fall. Time Seen by Provider: 14:03 Travel History International Travel<30 days: No Contact w/Intl Traveler<30days: No History of Present Illness HPI 40-year-old Afro-[place] female presents the emergency department via EMS status post fall at [facility]. Patient fell directly backwards onto her buttocks. She is now complaining of central buttock pain. Patient recently had a 5 months ago, has some discomfort in the anterior abdomen. She denies headache, neck pain, or other trauma. Pain in the coccygeal region is 9 out of 10. Patient denies numbness, tingling, or weakness in the lower extremities. Patient has no known drug allergies. She is not breast-feeding. [facility] Past Medical History Diminished Hearing: No : 2 Para: 1 Past Surgical History Section: Yes Social History Alcohol Use: Yes Tobacco Use: Yes Substance Use: Yes (per [facility]: cocaine, marijuana, opiates ) Allergies-Medications (Allergen,Severity, Reaction): Coded Allergies: No Known Allergies (Verified , 06/09/16) Reported Meds & Prescriptions Reported Meds & Active Scripts Active Poly-Iron 150 (Polysaccharide Iron Complex) 150 Mg Cap 150 Mg PO Q12HR Ibuprofen 600 Mg Tab 600 Mg PO Q6H PRN Reported Zyrtec Allergy (Cetirizine HCl) 10 Mg Cap 10 Mg PO DAILY Fluticasone Nasal [place] 50 Mcg/Act Naspr 50 Mcg EACH NARE BID 50 mcg/spray [place] ( Vitamin) 1 Tab Tab Review of Systems Except as stated in HPI: all other systems reviewed are Neg General / Constitutional: No: Fever Eyes: No: Visual changes HENT: No: Headaches Cardiovascular: No: Chest Pain or Discomfort Respiratory: No: Shortness of Breath Gastrointestinal: No: Abdominal Pain Genitourinary: No: Dysuria Musculoskeletal: No: Pain Skin: No Rash Neurologic: No: Weakness Psychiatric: No: Depression Endocrine: No: Polydipsia Hematologic/Lymphatic: No: Easy Bruising Physical Exam Narrative GENERAL: Patient appears in moderate discomfort. She has to lay on her side, Due to the pain in her buttock. SKIN: Warm and dry. Normal color. Normal turgor. HEAD: Atraumatic. Normocephalic. Nontender. EYES: Pupils equal and round. No scleral icterus. No injection or drainage. ENT: No nasal bleeding or discharge. Mucous membranes pink and moist. Pharynx is clear. Airway is patent NECK: Trachea midline. No bony tenderness or step-off. Range of motion is supple and full. CARDIOVASCULAR: Regular rate and rhythm. RESPIRATORY: No accessory muscle use. Clear to auscultation. Breath sounds equal bilaterally. GASTROINTESTINAL: Abdomen soft, non-tender, nondistended. Hepatic and splenic margins not palpable. MUSCULOSKELETAL: Extremities without clubbing, cyanosis, or edema. No obvious deformities. Patient able to move both lower extremities without obvious signs of weakness. She has tenderness along the lower sacrum and coccygeal region. No bruising is noted at this time. NEUROLOGICAL: Awake and alert. No obvious cranial nerve deficits. Motor grossly within normal limits. Five out of 5 muscle strength in the arms and legs. Normal speech. PSYCHIATRIC: Appropriate mood and affect; insight and judgment normal. Data Data Last Documented VS Vital Signs Date Time Temp Pulse Resp B/P (MAP) Pulse Ox O2 Delivery O2 Flow Rate FiO2 11/22/16 14:05 99 Room Air 11/22/16 14:05 98.5 84 18 106/65 (79) Orders Orders Urinalysis - C+S If Indicated (11/22/16 14:03) Sodium Chloride 0.9% Flush (Ns Flush) (11/22/16 14:15) Ketorolac Inj (Toradol Inj) (11/22/16 14:15) Ed Urine Pregnancytest Poc (11/22/16 14:03) Pelvis, Ap Only (Routine) (11/22/16 14:03) MDM Medical Decision Making Medical Screen Exam Complete: Yes Emergency Medical Condition: Yes Differential Diagnosis Slip and fall. Coccygeal injury. Possible fracture. Narrative Course Urinalysis and urine is ordered. Patient is given Toradol 60 mg IM. X-ray of the pelvis ordered. X-ray shows no acute fractures per radiologist. Urinalysis was canceled. Patient was discharged home with ibuprofen 800 mg 3 times daily with food. #30. Patient is given Tylenol 500 mg 2 tabs every 6 hours when necessary pain #60. Patient is to use ice to the area frequently and a "doughnut pillow" as needed. Patient follow with her primary care physician or return to department as needed. Work note for the next 2 days is given. Diagnosis Primary Impression: Fall from slipping on slippery surface Qualified Codes: W01.0XXA - Fall on same level from slipping, tripping and stumbling without subsequent striking against object, initial encounter Additional Impression: Coccygeal injury Qualified Codes: S39.92XA - Unspecified injury of lower back, initial encounter Referrals: Primary Care Physician Patient Instructions: Coccyx Injury (ED), General Instructions Departure Forms: Work Release Enter return to work date: Nov 25, 2016 Additional Instructions: X-ray shows no acute fractures per radiologist. Urinalysis was canceled. Patient was discharged home with ibuprofen 800 mg 3 times daily with food. #30. Patient is given Tylenol 500 mg 2 tabs every 6 hours when necessary pain #60. Patient is to use ice to the area frequently and a "doughnut pillow" as needed. Patient follow with her primary care physician or return to department as needed. Work note for the next 2 days is given. Med/Other Pt SpecificInfo: Prescription(s) given Disposition: DISCHARGE HOME Condition: Stable Miguel Stringer Nov 22, 2016 14:09
[2016-11-22] MEDS ORDERED: KETOROLAC TROMETHAMINE 60 MG/2 ML (IM) VIAL IM ONE (14:15)
[2016-11-22] MEDS ORDERED: SODIUM CHLORIDE 0.9% FLUSH 10 ML FLUSH IV FLUSH PRN (14:15)
--- NOTE | 2016-11-22 14:38 | RADRPT ---
EXAM DATE/TIME: 11/22/2016 14:24 [place] COMPARISON: No previous studies available for comparison. INDICATIONS : Patient fell today and complains of low pelvic pain. MEDICAL HISTORY : None. SURGICAL HISTORY : None. ENCOUNTER: Initial ACUITY: 1 day PAIN SCORE: 10/10 LOCATION: Bilateral pelvic FINDINGS: A single frontal view of the pelvis demonstrates no evidence of fracture. The bony pelvic ring is in tact. Bony mineralization is normal. The soft tissues are intact. CONCLUSION: Negative for fracture or dislocation. Follow up in 7-10 days is suggested if symptoms persist. Reji Carrasquillo MD FACR on November 22, 2016 at 14:36 Board Certified Radiologist. This report was verified electronically.
[2016-11-22] MEDS ORDERED: MAPA500T13 PO (14:56)
[2016-11-22] MEDS ORDERED: IBUP800T23 PO (14:56)
--- NOTE | 2016-11-22 15:09 | PD ---
Data Data Last Documented VS Vital Signs Date Time Temp Pulse Resp B/P (MAP) Pulse Ox O2 Delivery O2 Flow Rate FiO2 11/22/16 14:05 99 Room Air 11/22/16 14:05 98.5 84 18 106/65 (79) Orders Orders Sodium Chloride 0.9% Flush (Ns Flush) (11/22/16 14:15) Ketorolac Inj (Toradol Inj) (11/22/16 14:15) Pelvis, Ap Only (Routine) (11/22/16 14:03) MDM Supervised Visit with ETHAN: Yes Narrative Course The history, exam, and medical decision-making in the associated mid-level provider note were completed with my assistance. I reviewed and agree with the findings presented. I attest that I had a [id number] encounter with the patient on the same day, and personally performed and documented my assessment and findings in the medical record. *My assessment and Findings: 40 year-old woman with slip and fall [employer]. She complaining of pain in her bottom. X-rays negative. Recommend supportive treatment. Diagnosis Primary Impression: Fall from slipping on slippery surface Qualified Codes: W01.0XXA - Fall on same level from slipping, tripping and stumbling without subsequent striking against object, initial encounter Additional Impression: Coccygeal injury Qualified Codes: S39.92XA - Unspecified injury of lower back, initial encounter Referrals: Primary Care Physician Patient Instructions: General Instructions, Coccyx Injury (ED) Departure Forms: Work Release Enter return to work date: Additional Instruction: X-ray shows no acute fractures per radiologist. Urinalysis was canceled. Patient was discharged home with ibuprofen 800 mg 3 times daily with food. #30. Patient is given Tylenol 500 mg 2 tabs every 6 hours when necessary pain #60. Patient is to use ice to the area frequently and a "doughnut pillow" as needed. Patient follow with her primary care physician or return to department as needed. Work note for the next 2 days is given. Scripts Acetaminophen (Mapap Extra Strength) 500 Mg Tab 500 MG PO Q6HR Y for PAIN, #60 TAB 0 Refills Prov: Ricardo Mckeon MD 11/22/16 Ibuprofen (Ibuprofen) 800 Mg Tab 800 MG PO Q8H Y for PAIN SCALE 5 TO 10, #30 TAB 0 Refills Prov: Ricardo Mckeon MD 11/22/16 Disposition: 01 DISCHARGE HOME Condition: Stable Ricardo Mckeon MD Nov 22, 2016 15:09
== END 2016-11-22 15:49 | disposition home or self-care (01) ==
LOC: NEPC 13:50
DX: S39.92XA Unspecified injury of lower back, initial encounter (principal); W01.0XXA Fall on same level from slipping, tripping and stumbling without subsequent striking against object, initial encounter; Y92.512 Supermarket, store or market as the place of occurrence of the external cause
CPT/HCPCS: 72170; 84703; 96372; 99284; J1885